=== PATIENT | female | born 1985 | race Two or more races ===

== ENCOUNTER 2023-03-23 04:27 | Day surgery (SDC) | payer OTHER, BC ==
[2023-03-19 13:35] VITALS: BMI 22.8
[2023-03-23] MEDS ORDERED: BUPIVACAINE HCL/PF 0.5% (5MG/ML) 10 ML VIAL IJ ONE (10:00)
[2023-03-23 11:16] VITALS: BP 119/71; PULSE 68; RESP 19; TEMP 97.7
[2023-03-23] MEDS ORDERED: ACETAMINOPHEN 500 MG TABLET (FP) PO PRN (20:21)
== END 2023-03-23 11:00 | disposition home or self-care (01) ==
LOC: JASU-SURG 04:27
PROVIDERS: ATTEND Pain Medicine Pain Medicine
PROC: 3E0T33Z Introduction of Anti-inflammatory into Peripheral Nerves and Plexi, Percutaneous Approach (ICD-10-PCS; 2023-03-23)
PROC: 3E0T3BZ Introduction of Anesthetic Agent into Peripheral Nerves and Plexi, Percutaneous Approach (ICD-10-PCS; principal; 2023-03-23 11:45)
DX: M47.812 Spondylosis without myelopathy or radiculopathy, cervical region (principal)
CPT/HCPCS: 76000-TC-FY; 81025

== ENCOUNTER 2024-09-01 14:20 | Observation (INO) | payer BC, OTHER ==
[2024-09-01] MEDS ORDERED: ACETAMINOPHEN 325 MG TABLET (FP) ONE (16:37)
[2024-09-01] MEDS: ACETAMINOPHEN 325 MG TABLET (FP) PO ONE (16:40)
[2024-09-01] MEDS: LACTATED RINGERS SOLUTION 1,000 ML/1,000 ML INFUS.BAG IV SCH (16:41)
[2024-09-01] MEDS ORDERED: BETAMET ACET/BETAMET NA PH 30 MG/5 ML VIAL ONE (19:26)
[2024-09-01] MEDS: BETAMET ACET/BETAMET NA PH 30 MG/5 ML VIAL IM SCH (19:35)
[2024-09-01 19:45] LABS: URINE APPEARANCE CLEAR; URINE BILIRUBIN NEGATIVE (NEGATIVE); URINE COLOR YELLOW; URINE GLUCOSE (UA) NEGATIVE (NEGATIVE); URINE KETONE TRACE (NEGATIVE); URINE LEUK ESTERASE NEGATIVE (NEGATIVE); URINE NITRITE NEGATIVE (NEGATIVE); URINE PROTEIN NEGATIVE (NEGATIVE); URINE UROBILINOGEN 0.2 mg/dL (0.2-1.0)
[2024-09-01 20:20] LABS: BASO % 0.5 % (0-2.0); EOS % 0.6 % (0-4.5); HEMATOCRIT 30.4 % (32.4-45.2); HEMOGLOBIN 10.2 GM/dL (10.7-15.3); LYMPH % 18.4 % (8-40); MCH 30.1 pg (25.7-33.7); MCHC 33.4 g/dl (32.0-36.0); MEAN CELL VOLUME 90.2 fl (80-96); MEAN PLT VOLUME 8.7 fl (7.5-11.1); MONO % 6.2 % (3.8-10.2); NEUT % 74.3 % (42.8-82.8); PLATELET COUNT 264 10^3/uL (134-434); RBC 3.37 M/mm3 (3.60-5.2); RDW 14.4 % (11.6-15.6); WHITE BLOOD COUNT 12.3 K/mm3 (4.0-10.0)
[2024-09-01 20:27] LABS: INR 1.03 (0.83-1.09); PROTHROMBIN TIME (PATIENT) 11.8 SEC (9.7-13.0)
[2024-09-01 20:30] LABS: ACTIVATED PTT 26.2 SECONDS (25.2-36.5)
[2024-09-01 20:45] LABS: POTASSIUM 3.3 mmol/L (3.5-5.1)
[2024-09-01 20:47] LABS: CALCIUM 8.9 mg/dL (8.5-10.1)
[2024-09-01 20:48] LABS: ALBUMIN 2.5 g/dl (3.4-5.0); BLOOD UREA NITROGEN 7.9 mg/dL (7-18)
[2024-09-01 20:50] LABS: SYPHILIS W/ RPR CONF NON-REACTIVE (NONREACTIVE)
[2024-09-01 20:51] LABS: CREATININE 0.4 mg/dL (0.55-1.3)
[2024-09-01 20:52] LABS: BILIRUBIN,TOTAL 0.3 mg/dL (0.2-1)
[2024-09-01 20:53] LABS: TOT PROT 5.8 g/dl (6.4-8.2)
[2024-09-01 21:18] LABS: HIV INTERPRETATION NEGATIVE (NEGATIVE)
[2024-09-01 23:17] VITALS: BMI 29.4
[2024-09-02 04:43] VITALS: RESP 18
[2024-09-02 09:12] VITALS: BP 126/76; PULSE 87; TEMP 98.1
== END 2024-09-02 11:25 | disposition home or self-care (01) ==
LOC: JDEL 14:20 → JLDR 19:00
PROVIDERS: ADMIT Obstetrics & Gynecology; ATTEND Obstetrics & Gynecology
PROC: 3E023GC Introduction of Other Therapeutic Substance into Muscle, Percutaneous Approach (ICD-10-PCS; principal; 2024-09-01)
PROC: 3E0337Z Introduction of Electrolytic and Water Balance Substance into Peripheral Vein, Percutaneous Approach (ICD-10-PCS; 2024-09-01)
DX: T79.A3XA Traumatic compartment syndrome of abdomen, initial encounter (principal); V43.52XA Car driver injured in collision with other type car in traffic accident, initial encounter; Y93.89 Activity, other specified; Y92.89 Other specified places as the place of occurrence of the external cause; Z3A.28 28 weeks gestation of pregnancy
CPT/HCPCS: 36415; 80053; 81003; 85025; 85610; 85730; 86780; 86850; 86870; 86880; 86900; 86901; 86902; 87340; 87389; 96360; 96372; G0378

== ENCOUNTER 2024-11-04 17:29 | Emergency (ER) | payer BC, OTHER ==
[2024-11-04 17:47] VITALS: BP 127/73; PULSE 92; RESP 18; TEMP 99.1; BMI 28.0
[2024-11-04] MEDS ORDERED: ACETAMINOPHEN INJECTION 100 ML ONE (18:49)
[2024-11-04] MEDS: ACETAMINOPHEN 1000 MG/100 ML BAG IVPB ONE (19:00)
[2024-11-04] MEDS: SODIUM CHLORIDE 0.9% 1000 ML INFUS.BAG IV ONE (19:00)
[2024-11-04 19:16] LABS: BASO % 0.5 % (0-2.0); EOS % 0.1 % (0-4.5); HEMATOCRIT 29.5 % (32.4-45.2); HEMOGLOBIN 9.6 GM/dL (10.7-15.3); LYMPH % 13.2 % (8-40); MCH 28.8 pg (25.7-33.7); MCHC 32.4 g/dl (32.0-36.0); MEAN CELL VOLUME 88.8 fl (80-96); MEAN PLT VOLUME 7.6 fl (7.5-11.1); MONO % 7.6 % (3.8-10.2); NEUT % 78.6 % (42.8-82.8); PLATELET COUNT 437 10^3/uL (134-434); RBC 3.32 M/mm3 (3.60-5.2); RDW 18.8 % (11.6-15.6); WHITE BLOOD COUNT 13.6 K/mm3 (4.0-10.0)
[2024-11-04 19:39] LABS: POTASSIUM 3.7 mmol/L (3.5-5.1)
[2024-11-04 19:41] LABS: BLOOD UREA NITROGEN 4.8 mg/dL (7-18); CALCIUM 8.7 mg/dL (8.5-10.1)
[2024-11-04 19:42] LABS: ALBUMIN 2.9 g/dl (3.4-5.0)
[2024-11-04 19:45] LABS: CREATININE 0.6 mg/dL (0.55-1.3)
[2024-11-04 19:46] LABS: BILIRUBIN,TOTAL 0.4 mg/dL (0.2-1); TOT PROT 6.6 g/dl (6.4-8.2)
[2024-11-04 19:53] LABS: EPI CELLS 22 /uL (0-25.1); HYALINE CASTS 1 /uL (0-3.1); URINE APPEARANCE CLEAR; URINE BACTERIA 23 /uL (0-1359); URINE BILIRUBIN NEGATIVE (NEGATIVE); URINE COLOR YELLOW; URINE GLUCOSE (UA) NEGATIVE (NEGATIVE); URINE KETONE NEGATIVE (NEGATIVE); URINE LEUK ESTERASE 2+ (NEGATIVE); URINE NITRITE NEGATIVE (NEGATIVE); URINE PROTEIN TRACE (NEGATIVE); URINE RBC 24 /uL (0-23.9); URINE UROBILINOGEN 0.2 mg/dL (0.2-1.0); URINE WBC 271 /uL (0-25.8)
== END 2024-11-05 00:16 | disposition home or self-care (01) ==
LOC: JER 17:29
PROC: 3E033NZ Introduction of Analgesics, Hypnotics, Sedatives into Peripheral Vein, Percutaneous Approach (ICD-10-PCS; principal; 2024-11-04)
DX: N39.0 Urinary tract infection, site not specified (principal); R50.9 Fever, unspecified; Z20.822 Contact with and (suspected) exposure to COVID-19
CPT/HCPCS: 0241U-QW; 36415; 71046-TC-FY; 76830-TC; 80053; 81003; 85025; 87086; 87651; 99285-25; J0131